=== PATIENT | female | born 1945 | race Caucasian/White ===

== ENCOUNTER → 2017-06-22 | Outpatient (CLI) | payer MEDICARE ==
[~2017-06-22] MED LIST: ACTOS30 MG PO; ANEXSIA 7.5/3251 TA1 PO; ASPIRIN PO; ASPIRIN81 M1 PO; ASPIRIN81 M2 PO; ASPIRIN81 MG PO; ATIVAN PO; CLOPIDOGREL75 MG PO; IMDUR PO; LIPITOR PO; LIPITOR80 MG PO; LISINOPRIL PO; LISINOPRIL10 MG PO; LISINOPRIL5 MG PO; LOPRESSOR PO; LORAZEPAM1 MG PO; METFORMIN PO; METOPROLOL SUCC50 MG PO; METOPROLOL TAR25 MG PO; METOPROLOL TART25 MG PO; NITROGYLCERIN SUBLINGUAL; NORCO 5/325 TAB1 TAB PO; PATIENT'S PHARMACY; PEPCID40 MG PO; PHENERGAN PO; PIOGLITAZONE HC30 MG PO; PLAVIX PO; PLAVIX300 MG PO; PLETAL50 MG PO; PRAVACHOL PO; PRILOSEC PO; PRINIVIL5 MG PO; PROMETHAZINE W118 M1 PO; SERTRALINE HCL100 M1 PO; ST. JOSEPH ASPI81 M2; TAMIFLU75 M1 PO; VOLTAREN75 MG PO; ZEGERID40 MG/PKT PO; ZOFRAN ODT4 MG PO; ZOFRAN PO; ZOLOFT PO; ZOLOFT100 MG PO
--- NOTE | ~2017-06-22 | US85 ---
[facility] A Service of [facility] & [facility] RADIOLOGY TEXT RESULTS PATIENT: MONIQUE CORDOVA LOCATION: CNIV : 45 UNIT #: [id number] AGE: [address]: Elio Verdin MD SEX: F ORDER DR: [id number] [facility] [address] [place], [place] [address] [id number] O MR#: [id number] Acc #: [id number] NAME: MONIQUE CORDOVA. : 1945 SEX: F STUDY DATE/TIME: 06/22/2017 13:47 UNIT: CNIV ROOM: STUDY DESCRIPTION: [facility] or [facility] Attending Physician: Eloi Verdin M.D. Referring Physician: Elio Verdin M.D. Ordering Physician: Elio Verdin M.D. Primary Care Physician: Elio Verdin M.D. MEDICAL IMAGING REPORT This report is preliminary unless electronic signature is present EXAM Right lower extremity venous duplex 06/22/2017 HISTORY Right lower extremity edema for 2 weeks. Evaluate for deep vein thrombosis. TECHNIQUE Venous ultrasound examination of the right lower extremity was performed using grayscale, spectral Doppler and color flow Doppler imaging. FINDINGS The examination is negative. There is no evidence of right lower extremity deep venous thrombus from the groin to the lower calf. Visualized greater saphenous vein is also patent. IMPRESSION Negative examination. No evidence of right lower extremity deep venous thrombosis. Dictated by... Americo Barr M.D. THIS IS AN ELECTRONICALLY VERIFIED REPORT Americo Barr M.D. at 06/27/2017 12:01 PM KRT/pcl TD: 06/22/2017 20:16 JOB #: [id number] MEDICAL IMAGING REPORT [facility] A Service of [facility] & [facility] RADIOLOGY TEXT RESULTS PATIENT: MONIQUE CORDOVA LOCATION: CNIV : 45 UNIT #: [id number] AGE: [address]: Elio Verdin MD SEX: F ORDER DR: Page 1 of 1 COPY
== END | disposition home or self-care (01) ==
LOC: CNIV 13:01
DX: M79.89 Other specified soft tissue disorders (principal)
CPT/HCPCS: 93971